=== PATIENT | male | born 1950 | race Caucasian/White ===

== ENCOUNTER 2022-03-16 18:30 | Emergency (ER) | payer MEDICARE, SELFPAY ==
[2022-03-16 19:05] VITALS: BP 147/65; PULSE 75; RESP 16; TEMP 37.4; O2SAT 99
--- NOTE | 2022-03-16 20:00 | ED.GENADUL_ITS ---
Discharge Plan Disposition Patient Disposition: Home Condition: Stable Discharge Details Clinical Impression: COVID-19 Primary Care Provider: Mamta,Local ED Provider: Cherie Zayas Home Meds and New Rx's Prescriptions: Continued Praluent Pen 75 mg/mL pen injector SUBCUT aspirin 81 mg Tablet,Chewable 81 mg PO DAILY Xarelto 2.5 mg Tablet 2.5 mg PO BID Discharge Instructions Instructions: COVID-19 (Coronavirus Disease 2019) (ED), COVID-19 and Chronic Health Conditions (ED) Additional Instructions: You have tested positive for the COVID-19 virus. Drink plenty of fluids and get plenty of rest. Take Tylenol every 4 hours as needed and directed for fever or pain. Follow-up with a primary care doctor in 1 week if needed. Return to the emergency department with any worsening or new concerning symptoms difficulty breathing, persistent vomiting or any other concerns. Discharge Data Discharge Date/Time-TO BE ENTERED AT DEPARTURE: 03/16/22 20:36 Discharge Physician: Cherie Zayas Medical Decision Making 71-year-old male with a history of coronary artery disease, hyperlipidemia, quadruple bypass, carotid endarterectomy, carotid artery stent, bilateral renal artery stent presents with 5 days of generalized fatigue and coughing with development of fever today. SARS antigen COVID and flu test completed on arrival and positive for COVID. Patient assessed by me at bedside and appears comfortable, in no acute distress and speaking in full sentences. His oxygen saturation is 97 to 99% on room air. He has no focal deficits or meningeal signs. Discussed with patient that as he is on his fifth day of symptoms, Paxlovid could be considered however there would likely be a contraindication with Xarelto. Patient states he does not want to take Paxlovid. Oral temp taken by me and is 102.1. Patient is agreeable with taking Tylenol. [place] staying in a [place] nearby and states he does not have Tylenol. We will give 2 doses of 650 mg Tylenol to go. Patient states he is staying here for the next month and then traveling back to [place]. Offered to place patient on care management list to arrange for a follow-up appointment with the primary care doctor in the area for reevaluation in the next 1 to 2 weeks but patient declines. Usual and customary return precautions given prior to discharge. Medical Records Medical records reviewed: Yes I reviewed the patient's medical records. HPI General Mode of arrival: ambulatory . Date/Time Provider Initiated Documentation: 03/16/22 19:13 . Limitations to Documentation: no limitations . Information obtained by: patient . HPI Narrative: Patient is a 71-year-old male visiting from [place] with a history of coronary artery disease, hyperlipidemia, quadruple bypass, carotid endarterectomy and carotid artery stent presents with generalized fatigue and coughing for 5 days with development of fever today. T-max of 103.8 this afternoon. He states he did not take any Tylenol or ibuprofen. Patient states his symptoms for started with a cough 5 days ago. He states he has had a persistent forceful cough for the past 5 days. Patient states he flew from [place] 2 weeks ago and did not wear a mask on the plane. He also states he was at [employer] within the last week. Patient states he is unvaccinated for COVID. He denies any headache, neck pain, chest pain, difficulty breathing, vomiting or diarrhea. Related Data Home Medications Medication Instructions Recorded Confirmed alirocumab 75 mg/mL subcutaneous device subcut 03/16/22 03/16/22 pen injector (Praluent Pen) aspirin 81 mg chewable tablet 81 mg PO DAILY 03/16/22 03/16/22 rivaroxaban 2.5 mg tablet (Xarelto) 2.5 mg PO BID 03/16/22 03/16/22 Allergies Allergy/AdvReac Type Severity Reaction Status Date / Time heparin Allergy Unknown Unverified 03/16/22 20:26 General Stated Complaint: Fever OMAR: 3 Review of Systems All systems reviewed & are unremarkable except as noted in HPI and below Constitutional Constitutional: Reports as per HPI, Denies chills, Reports fatigue, Reports fever(s) and Reports poor appetite Eyes Eyes: Denies blurry vision ENT Ears, Nose, Mouth, and Throat: Denies dizziness, Denies sore throat and Denies throat swelling Cardiovascular Cardiovascular: Denies chest pain and Denies dyspnea Respiratory Respiratory: Reports cough and Denies dyspnea Gastrointestinal Gastrointestinal: Denies abdominal pain, Denies diarrhea and Denies vomiting Genitourinary Genitourinary: Denies hematuria and Denies dysuria Musculoskeletal Musculoskeletal: Denies back pain and Denies numbness Integumentary/Breasts Skin/Breast: Denies lesions and Denies rash Neurologic Neurologic: Denies dizziness, Denies localized weakness and Denies numbness Endocrine Endocrine: Reports fatigue Allergic/Immunologic Allergic/Immunologic: Denies throat swelling PFSH All Active Problems (Updated 03/16/22 @ 21:35 by Cherie Zayas DO) COVID-19 (Acute) Medical History (Updated 03/16/22 @ 21:35 by Cherie Zayas DO) Coronary artery disease Hx of hyperlipidemia Surgical History (Updated 03/16/22 @ 21:35 by Cherie Zayas DO) History of carotid endarterectomy History of quadruple bypass 2008 History of stent insertion of renal artery Hx of cholecystectomy Internal carotid artery stent present Social History Smoking/Tobacco Use Status: Never Smoking risk assessment performed?: Yes Alcohol Intake: never Drug use: Never Substance use type: does not use Do you feel safe at home: Yes Do you feel safe in your relationship?: Yes Exam Const General: cooperative and no acute distress Orientation: alert, awake and oriented x3 HENMT Head: normal to inspection Ears: hearing grossly normal bilaterally and external ears normal General nose exam: external nose normal Face and sinus: normal facial exam Mouth: oral mucosae normal Eyes General: appearance normal, both eyes and all related structures Pupils: PERRL EOM: EOM intact bilaterally Neck Neck: normal visual inspection and No submandibular swelling Lymphatic: no lymphadenopathy noted Chest Chest: normal inspection of the chest and no tenderness Resp Effort & Inspection: normal respiratory effort and able to speak in complete sentences Auscultation: clear to auscultation bilaterally Cardio Rate: regular rate Rhythm: regular rhythm GI Inspection: normal to inspection Palpation: soft, not firm, not rigid and nontender Auscultation: normal bowel sounds Skin General skin exam: no rashes or lesions noted Neuro General: patient alert, patient awake, patient oriented x3, moves all extremities and no meningeal signs Cognition: normal cognition Speech: speech normal Motor: muscle tone normal throughout Sensory Exam: no sensory deficits noted Extrem General: normal to inspection, full ROM, capillary refill normal, no calf tenderness bilaterally and no edema Psych Appearance: grossly normal Mental Status: mental status grossly normal Speech and Movement: speech and movement normal Affect: normal affect Course Vital Signs Vital signs: Vital Signs Temperature 99.3 F 03/16/22 19:05 Pulse 75 03/16/22 19:05 Respiratory Rate 16 03/16/22 19:05 Blood Pressure 147/65 H 03/16/22 19:05 Pulse Oximetry 99 03/16/22 19:05 Temperature 99.3 F 03/16/22 19:05 Temperature Source Tympanic 03/16/22 19:05 Pulse 75 03/16/22 19:05 Respiratory Rate 16 03/16/22 19:05 Respiratory Effort 03/16/22 19:10 Blood Pressure 147/65 H 03/16/22 19:05 Blood Pressure Position Sitting 03/16/22 19:05 Pulse Oximetry 99 03/16/22 19:05 Oxygen Delivery Method Room Air 03/16/22 19:05 Oxygen Flow Rate 0 03/16/22 19:05 Pain Level 0 03/16/22 19:05
[2022-03-16 20:21] VITALS: TEMP 38.9
[2022-03-16] MEDS: Acetaminophen 500 MG TAB 1000 MG PO (20:35)
[2022-03-16] MEDS: Acetaminophen 325 MG TAB 1300 MG PO (20:35)
== END 2022-03-16 20:36 | disposition home or self-care (01) ==
PROVIDERS: Emergency Provider Physician Assistant
DX: U07.1 COVID-19 (principal); I25.10 Atherosclerotic heart disease of native coronary artery without angina pectoris; Z95.1 Presence of aortocoronary bypass graft; R53.83 Other fatigue
CPT/HCPCS: 99283

== ENCOUNTER 2022-11-11 02:46 | Outpatient (CLI) | payer MEDICARE, SELFPAY ==
[2022-11-11 13:11] LABS: Calculated LDL 61 mg/dL (<100); Cholesterol 122 mg/dL (<200); HDL Cholesterol 34 mg/dL (40-60); Triglyceride 137 mg/dL (<150)
== END 2022-11-11 02:47 | disposition home or self-care (01) ==
LOC: LOS 02:46
DX: E78.5 Hyperlipidemia, unspecified (principal)
CPT/HCPCS: 36415; 80061

== ENCOUNTER 2023-05-07 03:36 | Outpatient (CLI) | payer MEDICARE, SELFPAY ==
[2023-05-07 12:43] LABS: Abs Immature Grans 0.02 10^3/uL (0.0-0.06); Absolute Basophil Count 0.05 10^3/uL (0.0-0.2); Absolute Eosinophil Count 0.62 10^3/uL (0.0-0.7); Absolute Lymphocyte Count 1.69 10^3/uL (1.2-3.4); Absolute Monocyte Count 0.51 10^3/uL (0.1-0.8); Absolute Neutrophil Count 3.15 10^3/uL (1.2-6.7); Basophils % 0.8; Eosinophils % 10.3; HGB 15.2 g/dL (13.5-17.5); Immature Grans % 0.3; MCH 31.8 pg (27.0-33.0); MCHC 33.8 % (32.0-36.0); MCV 94 fL (80-95); MPV 9.9 fL (8.0-11.0); Monocytes % 8.4; Neutrophils % 52.2; Platelet Count 211 10^3/uL (130-400); RBC 4.78 10^6/uL (4.36-5.78); RDW 13.6 % (11.8-14.1); RDW-SD 47.1 fL; WBC 6.04 10^3/uL (4.4-10.8)
[2023-05-07 13:03] LABS: ALT 21 U/L (16-63); AST 22 U/L (15-37); Albumin 3.4 g/dL (3.4-5.0); Alkaline Phosphatase 95 U/L (46-116); Anion Gap 5.7 mmol/L (3-11); BUN 8 mg/dL (7-18); Bilirubin, Total 0.4 mg/dL (0.2-1.0); CO2 30.3 mmol/L (21.0-32.0); CREATININE 1.3 mg/dL (0.70-1.30); Calcium 9.2 mg/dL (8.5-10.1); Calculated LDL 112 mg/dL (<100); Chloride 106 mmol/L (98-107); Cholesterol 158 mg/dL (<200); Glucose 91 mg/dL (74-106); HDL Cholesterol 34 mg/dL (40-60); Potassium 4.7 mmol/L (3.5-5.1); Sodium 142 mmol/L (136-145); Total Protein 7.2 g/dL (6.4-8.2); Triglyceride 64 mg/dL (<150)
[2023-05-07 13:37] LABS: NT-proBNP 147 pg/mL (<300)
[2023-05-07 14:14] LABS: Hemoglobin A1C 5.2 % (<5.7)
[2023-05-09 10:22] LABS: Apolipoprotein B, S 103 mg/dL; Lipoprotein (a) 229 nmol/L (<75)
== END 2023-05-07 03:37 | disposition home or self-care (01) ==
LOC: LOS 03:36
PROVIDERS: Student in an Organized Health Care Education/Training Program
DX: E78.5 Hyperlipidemia, unspecified (principal)
CPT/HCPCS: 36415; 80053; 80061; 82172; 83695; 83036; 83880; 85025